=== PATIENT | female | born 1950 | race Caucasian/White ===

== ENCOUNTER → 2017-01-11 | Outpatient (CLI) | payer BC ==
[~2017-01-11] MED LIST: CYCLOBENZAPRINE10 MG PO; DEXILANT60 M1 PO; ESTRADIOL PO; LORATADINE10 M1 PO; MIRALAX POWDER17 G1 PO; NAPROSYN500 MG PO; NORCO 5-325 TA1 EACH PO; RESTASIS 30 ML30 ML INTRAOC; RESTASIS0.05%; ULTRAM50 MG PO; ZITHROMAX Z PA250 MG PO
== END | disposition home or self-care (01) ==
LOC: CARD 14:38
DX: R07.89 Other chest pain (principal)

== ENCOUNTER 2017-11-26 16:21 | Emergency (ER) | payer OTHER ==
[~2017-11-26] VITALS: Wt 82.6 kg
[2017-11-26 17:34] LABS: BILIRUBIN NEGATIVE (NEGATIVE); BLOOD NEGATIVE (NEGATIVE); CLARITY CLEAR (CLEAR); COLOR YELLOW (YELLOW); GLUCOSE NEGATIVE (NEGATIVE); KETONE NEGATIVE (NEGATIVE); LEUKO ESTERASE NEGATIVE (NEGATIVE); NITRITE NEGATIVE (NEGATIVE); PH 5.5 (5.0-9.0); UROBILINOGEN 0.2 E.U./dl (0.2-1.0)
[2017-11-26 17:42] LABS: RBC 0-2 rbc/hpf (0-2); WBC 0-2 wbc/hpf (0-5)
[2017-11-26] MEDS ORDERED: MIRALAX POWDER17 G1 PO (18:06)
== END 2017-11-26 18:20 | disposition home or self-care (01) ==
LOC: ED 16:21
PROVIDERS: Nurse Practitioner Family
DX: K59.00 Constipation, unspecified (principal); M54.5 Low back pain; R35.0 Frequency of micturition; Z79.899 Other long term (current) drug therapy

== ENCOUNTER 2017-11-29 17:54 | Emergency (ER) | payer OTHER ==
[~2017-11-29] VITALS: Ht 162.5 cm; Wt 80.7 kg
[2017-11-29] MEDS ORDERED: ESTRACE1 MG PO (18:05)
[2017-11-29 19:38] LABS: BASO % 0.5 % (0.0-1.0); EOS # 0.4 10*3/uL (0.0-0.4); EOS % 4.7 % (1.0-4.0); HEMOGLOBIN 14.9 g/dl (12.0-16.0); LYMPH # 2.5 10*3/uL (1.3-4.4); MEAN CELL VOLUME 88.2 fl (81.0-99.0); MEAN CORPUSCULAR HGB 29.2 pg (27.0-31.0); MEAN CORPUSCULAR HGB CONC 33.1 g/dl (33.0-37.0); MEAN PLATELET VOLUME 9.9 fl (9.6-12.3); MONO # 0.7 10*3/uL (0.1-1.0); MONO % 9.7 % (3.0-9.0); NEUT # 3.9 10*3/uL (2.3-7.9); PLATELET COUNT AUTOMATED 263 10*3/uL (130-400); RED CELL DISTRI WIDTH 13.6 % (0-14.5); WHITE BLOOD COUNT 7.5 10*3/uL (4.8-10.8)
[2017-11-29 19:56] LABS: ALBUMIN 3.6 gm/dl (3.1-4.5); ALKALINE PHOSPHATASE 48 U/L (45-117); BUN 15 mg/dl (7-24); CHLORIDE 104 mmol/L (98-107); CREATININE 0.99 mg/dL (0.55-1.02); LIPASE 127 U/L (73-393); POTASSIUM 4.2 mmol/L (3.5-5.1); SGOT/AST 15 IU/L (3-35); SGPT/ALT 19 U/L (12-78); SODIUM 137 mmol/L (136-145); TOTAL PROTEIN 7.4 gm/dL (6.4-8.2)
[2017-11-29 19:57] LABS: TROPONIN I < 0.015 ng/ml (<0.045)
[2017-11-29 20:18] LABS: BILIRUBIN NEGATIVE (NEGATIVE); BLOOD NEGATIVE (NEGATIVE); CLARITY SL CLOUDY (CLEAR); COLOR YELLOW (YELLOW); GLUCOSE NEGATIVE (NEGATIVE); KETONE NEGATIVE (NEGATIVE); LEUKO ESTERASE NEGATIVE (NEGATIVE); NITRITE NEGATIVE (NEGATIVE); PH 5.5 (5.0-9.0); SPECIFIC GRAVITY <= 1.005 (1.005-1.030); UROBILINOGEN 0.2 E.U./dl (0.2-1.0)
[2017-11-29 20:26] LABS: BACTERIA TRACE; EPITHELIAL CELLS 0-2; WBC 0-2 wbc/hpf (0-5)
[2017-11-29] MEDS ORDERED: REGLAN5 MG PO (21:41)
[2017-11-29] MEDS ORDERED: KETOROLAC10 MG PO (21:41)
== END 2017-11-29 22:00 | disposition home or self-care (01) ==
LOC: ED 17:54
PROVIDERS: Emergency Medicine Emergency Medical Services
DX: R10.9 Unspecified abdominal pain (principal); G89.29 Other chronic pain; Z90.710 Acquired absence of both cervix and uterus; Z98.890 Other specified postprocedural states; Z79.899 Other long term (current) drug therapy

== ENCOUNTER → 2017-12-07 | Outpatient (CLI) | payer OTHER ==
[~2017-12-07] MED LIST changes: +ESTRACE1 MG PO; +KETOROLAC10 MG PO; +REGLAN5 MG PO
== END | disposition home or self-care (01) ==
LOC: US 09:09
DX: K76.0 Fatty (change of) liver, not elsewhere classified (principal)

== ENCOUNTER 2019-05-13 16:03 | Emergency (ER) | payer MEDICARE ==
[~2019-05-13] VITALS: Ht 160 cm; Wt 84.4 kg
[2019-05-13] MEDS ORDERED: CEPHALEXIN500 M1 PO (17:29)
== END 2019-05-13 17:35 | disposition home or self-care (01) ==
LOC: ED 16:03
DX: S91.332A Puncture wound without foreign body, left foot, initial encounter (principal); Z79.899 Other long term (current) drug therapy; W45.8XXA Other foreign body or object entering through skin, initial encounter; Y93.01 Activity, walking, marching and hiking; Y92.89 Other specified places as the place of occurrence of the external cause; Y99.8 Other external cause status

== ENCOUNTER → 2024-01-25 | Outpatient (CLI) | payer OTHER ==
[~2024-01-25] MED LIST changes: +CEPHALEXIN500 M1 PO
== END | disposition home or self-care (01) ==
LOC: RAD 12:58
PROVIDERS: ATTEND Physician Assistant
DX: R10.31 Right lower quadrant pain (principal)

== ENCOUNTER 2024-01-30 11:33 | Emergency (ER) | payer OTHER ==
[~2024-01-30] VITALS: Ht 162.5 cm; Wt 87.5 kg
[2024-01-30 12:04] LABS: BILIRUBIN Negative (Negative); BLOOD Negative (Negative); CLARITY Clear (Clear); COLOR Yellow (Yellow); GLUCOSE Negative (Negative); KETONE Negative (Negative); LEUKO ESTERASE Negative (Negative); NITRITE Negative (Negative); PH 6.5 (4.5-8.0); SPECIFIC GRAVITY 1.015 (1.001-1.030); UROBILINOGEN 0.2 E.U./dl (0.0-1.0)
[2024-01-30 12:14] LABS: BACTERIA 2+
[2024-01-30 12:47] LABS: BASO % 0.7 % (0.0-1.0); EOS # 0.2 10*3/uL (0.0-0.4); EOS % 3.4 % (1.0-4.0); HEMATOCRIT 50.3 % (37.0-47.0); LYMPH # 2.1 10*3/uL (1.3-4.4); LYMPH % 37.6 % (27.0-41.0); MEAN CORPUSCULAR HGB 29.3 pg (27.0-31.0); MEAN CORPUSCULAR HGB CONC 31.8 g/dl (33.0-37.0); MEAN PLATELET VOLUME 9.8 fl (9.6-12.3); MONO # 0.5 10*3/uL (0.1-1.0); NEUT # 2.9 10*3/uL (2.3-7.9); NEUT % 50.3 % (47.0-73.0); PLATELET COUNT AUTOMATED 292 10*3/uL (130-400); RED BLOOD COUNT 5.47 10*6/uL (4.10-5.10); RED CELL DISTRI WIDTH 13.7 % (0-14.5); WHITE BLOOD COUNT 5.7 10*3/uL (4.8-10.8)
[2024-01-30 13:22] LABS: ALKALINE PHOSPHATASE 52 U/L (46-116); BUN 12 mg/dl (9-23); CHLORIDE 101 mmol/L (98-107); LIPASE 45 U/L (12-53); POTASSIUM 5.1 mmol/L (3.4-5.1); SGPT/ALT 19 U/L (5-49); TOTAL PROTEIN 7.5 gm/dL (6.0-8.0)
[2024-01-30] MEDS ORDERED: CIPRO500 MG PO (14:20)
== END 2024-01-30 14:30 | disposition home or self-care (01) ==
LOC: ED 11:33
PROVIDERS: Internal Medicine
DX: N39.0 Urinary tract infection, site not specified (principal); K21.9 Gastro-esophageal reflux disease without esophagitis; Z90.710 Acquired absence of both cervix and uterus; Z98.890 Other specified postprocedural states

== ENCOUNTER → 2024-03-26 | Outpatient (CLI) | payer OTHER ==
[~2024-03-26] MED LIST changes: +CIPRO500 MG PO
== END | disposition home or self-care (01) ==
LOC: RAD 13:08
PROVIDERS: ATTEND Nurse Practitioner Family
DX: M51.36 Other intervertebral disc degeneration, lumbar region (principal); M25.551 Pain in right hip; M48.07 Spinal stenosis, lumbosacral region

== ENCOUNTER 2024-03-30 04:27 | Inpatient (IN) | payer OTHER ==
[~2024-03-30] VITALS: Ht 160 cm; Wt 89.8 kg
[2024-03-30 04:54] VITALS: BP 164/89
[2024-03-30 05:10] LABS: ACT PARTIAL THROMBO TIME 24.8 SECONDS (20.0-32.1)
[2024-03-30 05:52] LABS: ALKALINE PHOSPHATASE 53 U/L (46-116); BUN 14 mg/dl (9-23); CHLORIDE 106 mmol/L (98-107); POTASSIUM 4.2 mmol/L (3.4-5.1); SGPT/ALT 19 U/L (5-49); TOTAL PROTEIN 6.8 gm/dL (6.0-8.0)
[2024-03-30 06:06] LABS: BASO % 0.5 % (0.0-1.0); EOS # 0.2 10*3/uL (0.0-0.4); HEMATOCRIT 47.1 % (37.0-47.0); LYMPH # 2.9 10*3/uL (1.3-4.4); LYMPH % 35.3 % (27.0-41.0); MEAN CELL VOLUME 92.5 fl (81.0-99.0); MEAN CORPUSCULAR HGB 29.5 pg (27.0-31.0); MEAN CORPUSCULAR HGB CONC 31.8 g/dl (33.0-37.0); MEAN PLATELET VOLUME 10.6 fl (9.6-12.3); MONO # 0.8 10*3/uL (0.1-1.0); MONO % 9.7 % (3.0-9.0); NEUT # 4.2 10*3/uL (2.3-7.9); NEUT % 51.3 % (47.0-73.0); PLATELET COUNT AUTOMATED 275 10*3/uL (130-400); RED BLOOD COUNT 5.09 10*6/uL (4.10-5.10); WHITE BLOOD COUNT 8.1 10*3/uL (4.8-10.8)
[2024-03-30] MEDS ORDERED: OMEPRAZOLE10 MG PO (07:06)
[2024-03-30] MEDS ORDERED: VITAMIN D350 MC2 PO (07:07)
[2024-03-30 07:50] VITALS: BP 136/75
[2024-03-30] MEDS ORDERED: ACETAMINOPHEN 325 MG TAB PO PRN (08:40)
[2024-03-30] MEDS ORDERED: Ondansetron Hydrochloride 4 MG/2 ML VIAL IV PRN (08:40)
[2024-03-30] MEDS ORDERED: Regadenoson 0.4 MG/5 ML SYR IV ONE (09:08)
[2024-03-30] MEDS ORDERED: Enoxaparin Sodium 30 MG/0.3 ML SYR SC SCH (10:00)
[2024-03-30] MEDS ORDERED: Technetium Tc 99M Tetrofosmi 0.23 MG KIT IJ SCH (11:05)
[2024-03-30] MEDS ORDERED: FUROSEMIDE 40 MG/4 ML VIAL IV ONE (11:30)
[2024-03-30] MEDS ORDERED: LASIX20 MG PO (13:57)
[2024-03-31] MEDS ORDERED: Enoxaparin Sodium 40 MG/0.4 ML SYR SC SCH (10:00)
== END 2024-03-30 14:24 | disposition home or self-care (01) | DRG 392 ==
LOC: ED 04:27 → EDHOLD 06:53
PROVIDERS: Emergency Medicine; ADMIT Internal Medicine; ATTEND Internal Medicine
PROC: 4A02XM4 Measurement of Cardiac Total Activity, External Approach (ICD-10-PCS; principal; 2024-03-30)
PROC: 3E073KZ Introduction of Other Diagnostic Substance into Coronary Artery, Percutaneous Approach (ICD-10-PCS; 2024-03-30)
DX: K21.9 Gastro-esophageal reflux disease without esophagitis (principal); K44.9 Diaphragmatic hernia without obstruction or gangrene; E66.9 Obesity, unspecified; I20.89 Other forms of angina pectoris; Z82.49 Family history of ischemic heart disease and other diseases of the circulatory system; Z79.899 Other long term (current) drug therapy; Z90.710 Acquired absence of both cervix and uterus; Z71.3 Dietary counseling and surveillance

== ENCOUNTER → 2024-05-10 | Outpatient (CLI) | payer OTHER ==
[~2024-05-10] MED LIST changes: +LASIX20 MG PO; +OMEPRAZOLE10 MG PO; +VITAMIN D350 MC2 PO
== END | disposition home or self-care (01) ==
LOC: US 05-08 08:30
PROVIDERS: ATTEND Nurse Practitioner
DX: N28.1 Cyst of kidney, acquired (principal); R10.30 Lower abdominal pain, unspecified; Z90.710 Acquired absence of both cervix and uterus